=== PATIENT | male | born 1950 | race Caucasian/White ===

== ENCOUNTER 2016-11-30 04:35 | Emergency (ER) | payer SELFPAY ==
[~2016-11-30] VITALS: Ht 177.8 cm; Wt 83.0 kg
[~2016-11-30 04:35] MED LIST: METF500T4 PO; TAMS-14 PO
[2016-11-30 04:39] VITALS: Ht 177.8 cm; Wt 83.0 kg
== END 2016-11-30 05:00 | disposition left against medical advice (07) ==
LOC: FTE 04:35
DX: Z53.21 Procedure and treatment not carried out due to patient leaving prior to being seen by health care provider (principal)